=== PATIENT | female | born 1985 | race Caucasian/White ===

== ENCOUNTER 2016-12-12 08:00 | Emergency (ER) | payer BC, MEDICAID ==
[2016-12-12 08:27] VITALS: BP 120/70
[2016-12-12] MEDS ORDERED: ONDANSETRON 4 MG TAB.RAPDIS PO ONE (08:45)
--- NOTE | 2016-12-12 08:47 | ERNOTE ---
Abdominal HPI - General Chief Complaint: Nausea/Vomiting Time Seen by Provider: 12/12/16 08:10 Source: patient Exam Limitations: clinical condition - Immun/Allergies/Home Medications Immunizatons: IMMUNIZATION HX Immunizations Up to Date Yes History of Influenza Vaccine No Hx Pneumococcal Vaccination Yes Allergies/Adverse Reactions: Allergies influenza virus vaccine, specific [Influenza Virus Vacc,Specific] Allergy ( Severe, Verified 12/12/16 08:28) Hives, anaphylactic morphine Allergy (Intermediate, Verified 12/12/16 08:28) Hives, asthma set in gabapentin Adverse Reaction (Mild, Verified 12/12/16 08:28) Vomiting tramadol Adverse Reaction (Mild, Verified 12/12/16 08:28) Itching Home Medications: HOME MEDICATIONS Acetaminophen [Tylenol] 500 mg PO Q6H PRN 12/12/16 [Last Taken Unknown] Ondansetron [Zofran Odt] 4 mg PO Q4H PRN #10 tab 12/12/16 [Last Taken Unknown] - History of Present Illness Narrative: Patient started to have diarrhea yesterday, then started with vomiting at 03:00 this morning, last shortly prior to coming here. 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 She denies any abdominal pain Date (Duration): 12/11/16 Prior Abdominal Problems: Present: none Prior Treatment: Absent: recently seen, currently on antibiotics Review of Systems - Review of Systems Constitutional: Present: chills. Absent: recent illness, fever ENT: Absent: nose congestion, sore throat Respiratory: Absent: shortness of breath, cough Cardiology: Absent: chest pain Gastrointestinal/Abdominal: Present: See HPI, nausea, vomiting, diarrhea. Absent: abdominal pain Genitourinary: Present: no symptoms reported Neurological: Absent: headache, weakness, numbness - Patient's Past Medical History Patient History - Medical: No pertinent hx, Kidney stone, Other Patient History - Cardiac/Respiratory: Asthma Patient History - Cancer: No Hx of Cancer Patient History - Surgical Procedures: Appendectomy, D & C, Tubal Ligation, Other - Family History Mother Family History - Medical: Seizures Family History - Cardiac/Respiratory: CVA/Stroke Grandmother-Maternal Family History - Medical: , No pertinent hx Family History - Cardiac/Respiratory: No pertinent hx - Social History Living Situations: home Does anyone smoke in the home?: Yes Smoking Status: Current every day smoker Alcohol Use: none Drug Use: none Physical Exam - Physical Exam General Appearance: Present: wd/wn, alert, no apparent distress Eye Exam: Normal inspection: bilateral Ears, Nose, Throat: Present: normal pharynx Respiratory: Present: no respiratory distress, normal breath sounds, no accessory muscle use, lungs clear Cardiovascular/Chest: Present: regular rate, rhythm, no murmur Gastrointestinal/Abdominal: Present: normal bowel sounds, nontender, nondistended, soft Extremity Exam: Present: no edema Neurological Exam: Present: alert, oriented, normal mood/affect Skin Exam: Present: normal color, warm/dry ED Progress - Vital Signs Patient's Vital Signs:: I have reviewed the patient's vital signs. Vital Signs: Vital Signs 12/12/16 08:23 Temperature 36.0 C L Pulse Rate 78 Respiratory 18 Rate Blood Pressure 120/70 O2 Sat by Pulse 93 Oximetry - Progress/Reassessment Chief Complaint: Nausea/Vomiting Progress Note-Subjective: 12/12/16 10:27 tolerating water Departure - Departure Clinical Impression: Gastroenteritis and colitis, viral Disposition: Home self-care Condition: Good Instructions: Viral Gastroenteritis, Adult, [id number], Form - Excuse from Work, School, or Physical Activity Additional Instructions: follow up with your doctor as needed Prescriptions: Ondansetron [Zofran Odt] 4 mg PO Q4H PRN #10 tab PRN Reason: Nausea And Vomiting
[2016-12-12] MEDS ORDERED: ONDANSETRON 4 MG TAB.RAPDIS ONE (08:57)
== END 2016-12-12 12:20 | disposition home or self-care (01) ==
LOC: ER 08:00
DX: A08.4 Viral intestinal infection, unspecified (principal); F17.210 Nicotine dependence, cigarettes, uncomplicated

== ENCOUNTER 2017-04-11 18:15 | Emergency (ER) | payer BC, MEDICAID ==
[2017-04-11] MEDS ORDERED: ORPHENADRINE CITRATE 30 MG/ML VIAL IM ONE (18:36)
[2017-04-11] MEDS ORDERED: KETOROLAC TROMETHAMINE 60 MG/2 ML VIAL IM ONE ×2 (18:36→18:41)
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
--- OUTSIDE RECORDS SUMMARY | 2017-04-11 18:52 | XMS REPORT | Continuity of Care Document ---
:1985 Author Organization [facility] ([facility]) Address [address] [place] [address] Phone [phone] Care Team Providers Name Role Phone Provider, No-Primary Care Primary Care Provider Unavailable Source Comments This disclosure is being made pursuant to the Care Everywhere program, applicable federal and state laws, and may not contain all informaitonavailable regarding this patient.[facility] ([facility]) Active Allergies and Adverse Reactions Allergen Noted Date Severity Reactions Comments Morphine Asthma Current Medications Prescription Sig. Disp. Refills Start Date End Date Status multivitamin Take 1 Tab by mouth Active with minerals 27-0.8 mg daily. tablet nitrofurantoin Take 50 mg by mouth Active macrocrystal at bedtime. (MACRODANTIN) 50 mg Indications: capsule BACTERIAL URINARY TRACT INFECTION Active Problems Problem Noted Date hydronephrosis 07/10/2013 Social History Tobacco Use Types Packs/Day Years Used Date Current Every Day Smoker 0.75 12 Comments:cut down from 1.5 ppd Alcohol Use Drinks/Week oz/Week Comments No Last Filed Vital Signs Vital Sign Reading Time Taken Blood Pressure 110/56 07/10/2013 8:41 AM CDT Pulse 80 07/10/2013 8:41 AM CDT Temperature 35.8 C (96.4 F) 07/10/2013 8:41 AM CDT Respiratory Rate - - Height 1.727 m (5' 8") 07/10/2013 8:41 AM CDT Weight 82 kg (180 lb 12.4 oz) 07/10/2013 8:41 AM CDT Body Mass Index 27.49 07/10/2013 8:41 AM CDT Oxygen Saturation - - Plan of Care Health Maintenance Due Date Last Done Comments Hepatitis B Vaccine (1 of 3 - Primary Series) 1984 Tdap Vaccine 1995 Lipid Disorder Screening 2002 MMR Vaccine 2002 Td Vaccine 2002 Varicella Vaccine (1 of 2 - Adult - No Evidence of 2002 Immunity) Pneumococcal Vaccine (1 of 1 - PPSV23) 2003 Cervical Cancer Screening 2014 06/23/2004 Influenza Vaccine: Seasonal (#1) 06/20/2016 Results from Last 3 Months Not on file
[2017-04-11] MEDS ORDERED: ORPHENADRINE CITRATE 100 MG TABLET.SA PO ONE ×3 (19:17→19:19)
[2017-04-11 20:07] VITALS: BP 116/69
== END 2017-04-11 19:40 | disposition home or self-care (01) ==
LOC: ER 18:15
DX: M54.6 Pain in thoracic spine (principal); Z87.442 Personal history of urinary calculi; F17.200 Nicotine dependence, unspecified, uncomplicated

== ENCOUNTER 2017-04-12 10:24 | Day surgery (SDC) | payer BC, MEDICAID ==
[~2017-04-12 10:24] MED LIST: RINGERS SOLUTION,LACTATED 1,000 ML IV PRN; ceFAZolin SODIUM 1 GM in DEXTROSE 5 % IN WATER 100 ML IV PRN
--- OUTSIDE RECORDS SUMMARY | 2017-04-12 10:27 | XMS REPORT | Continuity of Care Document ---
:1985 Author Organization [facility] ([facility]) Address [address] [place] [address] Phone [phone] Care Team Providers Name Role Phone Provider, No-Primary Care Primary Care Provider Unavailable Source Comments This disclosure is being made pursuant to the Care Everywhere program, applicable federal and state laws, and may not contain all informaitonavailable regarding this patient.[facility] ([facility]) Active Allergies and Adverse Reactions Allergen [...]
[2017-04-12] MEDS ORDERED: LIDOCAINE HCL/EPINEPHRINE 50 ML VIAL IJ ONE (12:45)
[2017-04-12] MEDS ORDERED: RINGERS SOLUTION,LACTATED 1,000 ML IV ONE (13:27)
--- NOTE | 2017-04-12 13:53 | OR ---
Operative Report - Dictated Report Narrative: DATE OF PROCEDURE: 04/12/2017 INDICATIONS: 32-year-old with chronic pelvic pain, dysmenorrhea, menorrhagia unresponsive to conservative therapy PREOPERATIVE DIAGNOSIS: Chronic pelvic pain, dysmenorrhea, and menometrorrhagia unresponsive to conservative therapy POSTOPERATIVE DIAGNOSIS: Same PROCEDURE: Total vaginal hysterectomy, Cystoscopy SURGEON: Young Eaton D.O. COMMISSARY MANAGER: OR staff ANESTHESIA: General ESTIMATED BLOOD LOSS: 25 mL URINE OUTPUT: Not measured FLUID REPLACEMENT: 700 mL SPECIMEN(S): Uterus and cervix FINDINGS: 10 week size uterus with evidence of prior salpingectomy, normal- appearing ovaries, pelvic venous congestion TECHNIQUE: The patient was taken to the operating room and placed in dorsal lithotomy position after adequate general anesthesia was obtained, SCDs placed, and 1 g of Ancef given intravenously. The cervix was grasped with 2 single- tooth tenacula and a paracervical block was given using 1% lidocaine with epinephrine. Posterior colpotomy was performed using Mcclain scissors. A long weighted speculum was placed into the posterior cul-de-sac. Anterior colpotomy was performed with Mcclain scissors and a right angle Camille retractor was placed to retract the bladder. The bladder pillars were coagulated with the LigaSure device and transected. The right uterosacral ligament was grasped with a curved [place], transected, and Camille stitch tied. The exact same was done on the other side. The remaining pedicles were then sequentially doubly coagulated and transected distally using the LigaSure device and Mcclain scissors. The uterus was removed in total. The vaginal cuff was closed with a series of [id number] 0 Vicryl sutures. Cystoscopy was performed noting urine spurting freely from both ureteral orifices. The bladder was drained and the patient was transferred to postanesthesia care unit in good condition. Sponge, lap, instrument, and needle count were correct x 2. POSTOPERATIVE CONDITION: Good
[2017-04-12] MEDS ORDERED: oxyCODONE HCL/ACETAMINOPHEN 1 TAB TABLET PO PRN (14:30)
[2017-04-12] MEDS ORDERED: IBUPROFEN 800 MG TABLET PO PRN (14:31)
[2017-04-12 15:34] VITALS: BP 100/58
== END 2017-04-12 10:25 | disposition home or self-care (01) ==
LOC: AMB 10:24
PROVIDERS: ATTEND Obstetrics & Gynecology
PROC: 0UTC7ZZ Resection of Cervix, Via Natural or Artificial Opening (ICD-10-PCS; 2017-04-12)
PROC: 0UT97ZZ Resection of Uterus, Via Natural or Artificial Opening (ICD-10-PCS; principal; 2017-04-12 12:25)
DX: N87.0 Mild cervical dysplasia (principal); N94.6 Dysmenorrhea, unspecified; N92.0 Excessive and frequent menstruation with regular cycle; F17.200 Nicotine dependence, unspecified, uncomplicated; Z68.25 Body mass index [BMI] 25.0-25.9, adult

== ENCOUNTER 2017-06-21 16:32 | Emergency (ER) | payer BC, MEDICAID ==
[2017-06-21 16:58] VITALS: BP 107/90
--- NOTE | 2017-06-21 17:03 | ERNOTE ---
ENT HPI Date of Service: 06/21/17 Presenting Symptoms: other - Sore throat Time Seen by Provider: 06/21/17 17:01 Source: patient, RN notes reviewed Exam Limitations: no limitations - Immun/Allergies/Home Medications Immunizations: IMMUNIZATION HX Immunizations Up to Date Yes History of Influenza Vaccine No Hx Pneumococcal Vaccination No Allergies/Adverse Reactions: Allergies Allergy/AdvReac Type Severity Reaction Status Date / Time influenza virus vaccine, Allergy Severe Hives, Verified 06/21/17 16:58 specific anaphylactic [Influenza Virus Vacc,Specific] morphine Allergy Intermediate Hives, Verified 06/21/17 16:58 asthma set in Penicillins Allergy Intermediate THROAT Verified 06/21/17 16:58 SWELLING gabapentin AdvReac Mild Vomiting Verified 06/21/17 16:58 tramadol AdvReac Mild Itching Verified 06/21/17 16:58 Home Medications: HOME MEDICATIONS Acetaminophen [Tylenol] 1,000 mg PO Q6H PRN 12/12/16 [Last Taken Unknown] Multivitamins [Multivitamin Mame] 1 cap PO DAILY 04/11/17 [Last Taken Unknown] - History of Present Illness Narrative: 32 y/o female ambulatory to the ED to be checked for strep throat. She noticed white patches in the back of her throat yesterday. Her 5 children are being seen as well. She has been exposed to strep throat at work. Date (Duration): 06/20/17 ENT Location: Present: throat Prearrival Treatment: Present: no prearrival treatment Associated Symptoms - ENT: Reports: malaise, sore throat. Denies: fever Prior Treament: Denies: recently seen Review of Systems - Review of Systems Constitutional: Present: fatigue, malaise. Absent: fever, chills EYE: Present: no symptoms reported ENT: Present: sore throat. Absent: ear pain, nose congestion Respiratory: Absent: shortness of breath, cough Cardiology: Absent: chest pain, palpitations Gastrointestinal/Abdominal: Absent: nausea, vomiting Genitourinary: Present: no symptoms reported Musculoskeletal: Absent: muscle pain, neck pain Skin: Absent: rash, lesions Neurological: Absent: headache, dizziness/light-headedness Endocrine: Present: no symptoms reported Hematologic/Lymphatic: Present: no symptoms reported Psych: Present: no symptoms reported - Patient's Past Medical History Patient History - Medical: Anemia, Kidney stone, UTI'S, Other Patient History - Cardiac/Respiratory: Asthma Patient History - Cancer: Cervical, Ovarian Patient History - Surgical Procedures: Appendectomy, D & C, Hysterectomy, Tubal Ligation, Other Patient History - Other: None LMP (Calendar): 03/09/17 - Family History Mother Family History - Medical: Depression, Seizures Family History - Cardiac/Respiratory: CVA/Stroke Family History - Cancer: Other Grandmother-Maternal Family History - Medical: , No pertinent hx Family History - Cardiac/Respiratory: No pertinent hx Family History - Cancer: Breast, Lung, Other Father Family History - Medical: , Other Family History - Cardiac/Respiratory: No pertinent hx Family History - Cancer: No pertinent family hx - Social History Living Situations: home Abuse History: No History of abuse Psych History: No pertinent hx Does anyone smoke in the home?: Yes Smoking Status: Current every day smoker Alcohol Use: rarely Drug Use: none - Immunizations Immunizations Up to Date: Yes Hx Pneumococcal Vaccination: No History of Influenza Vaccine: No Physical Exam - Physical Exam General Appearance: Present: wd/wn, alert, no apparent distress Head Exam: Present: normal inspection Eye Exam: Normal inspection: bilateral Ears, Nose, Throat: Present: pharyngeal erythema, tonsillar swelling. Absent: abnormal TM (R), abnormal TM (L), nasal congestion, sinus pain/drainage, pharyngeal swelling, tonsillar exudate, dry mucous membranes Neck: Present: normal inspection, nontender, supple. Absent: lymphadenopathy (R ), lymphadenopathy (L) Respiratory: Present: no respiratory distress, normal breath sounds, no accessory muscle use, lungs clear Cardiovascular/Chest: Present: regular rate, rhythm, no murmur Extremity Exam: Present: normal inspection, normal range of motion, no edema Neurological Exam: Present: alert, oriented, normal mood/affect, no motor/ sensory deficits Skin Exam: Present: normal color, warm/dry ED Progress - Results and Orders Patient's Lab Results:: I have reviewed the patient's lab results. - Vital Signs Patient's Vital Signs:: I have reviewed the patient's vital signs. Vital Signs: Vital Signs 06/21/17 16:35 Temperature 37.1 C Pulse Rate 89 Respiratory 16 Rate Blood Pressure 107/90 O2 Sat by Pulse 98 Oximetry - Progress/Reassessment Chief Complaint: Sore Throat Progress:: Unchanged Departure Clinical Impression: Acute viral pharyngitis - Departure Disposition: Home self-care Condition: Good Instructions: Pharyngitis, [id number] Referrals: Triny Ceron FNP [Primary Care Provider] -
== END 2017-06-21 17:36 | disposition home or self-care (01) ==
LOC: ER 16:32
DX: Z03.89 Encounter for observation for other suspected diseases and conditions ruled out (principal); Z85.41 Personal history of malignant neoplasm of cervix uteri; Z85.43 Personal history of malignant neoplasm of ovary; F17.200 Nicotine dependence, unspecified, uncomplicated